=== PATIENT | male | born 1995 | race Caucasian/White ===

== ENCOUNTER 2018-11-28 18:32 | Emergency (ER) | payer OTHER ==
[~2018-11-28] VITALS: Ht 177.8 cm; Wt 90.9 kg
[2018-11-28 18:42] VITALS: BP 150/70; PULSE 84; TEMP 97.4
== END 2018-11-28 19:50 | disposition left against medical advice (07) ==
LOC: COL.ER 18:32
DX: S01.511A Laceration without foreign body of lip, initial encounter (principal); Y04.0XXA Assault by unarmed brawl or fight, initial encounter